=== PATIENT | female | born 1980 | race Two or more races ===

== ENCOUNTER 2021-08-18 20:24 | Emergency (ER) | payer OTHER ==
[~2021-08-18] VITALS: Ht 154.9 cm; Wt 73.2 kg
[2021-08-18] MEDS ORDERED: ALBUTEROL SULFATE HFA 90 MCG/PUFF 8 GM INHALER IH ONE (21:45)
[2021-08-18 21:58] LABS: COVID AG,FIA SOURCE NASOPHARYNGEAL
[2021-08-18 22:52] LABS: INFLUENZA TYPE A NEGATIVE FOR TYPE A (NEGATIVE)
[2021-08-18 22:53] LABS: INFLUENZA TYPE B NEGATIVE FOR TYPE B (NEGATIVE)
[2021-08-18 23:20] VITALS: BP 135/74
== END 2021-08-18 23:41 | disposition home or self-care (01) ==
LOC: EMS 20:29
DX: J45.901 Unspecified asthma with (acute) exacerbation (principal); Z20.822 Contact with and (suspected) exposure to COVID-19
CPT/HCPCS: 71045; 87426; 87804; 94640; 99285; U0003; J3535